=== PATIENT | male | born 1960 | race Hispanic/Latino ===

== ENCOUNTER 2017-12-04 06:00 | Day surgery (SDC) | payer OTHER ==
[2017-12-04] MEDS ORDERED: ECOTRIN PO NR (06:25)
[2017-12-04] MEDS ORDERED: NACL 0.9% 500 ML 500 ML IV SCH (07:00)
[2017-12-04 07:11] LABS: Basophils # (Auto) 0.1 K/mm3 (0.0-0.1); Eosinophils # (Auto) 0.2 K/mm3 (0.0-0.4); Hematocrit 41.4 % (35.5-45.6); Hemoglobin 14.2 gm/dl (11.8-15.2); Lymphocytes # (Auto) 1.9 K/mm3 (1.2-5.4); Lymphocytes % (Auto) 29.2 % (13.4-35.0); Mean Corpuscular HGB Conc 34 % (32-34); Mean Corpuscular Hemoglobin 30 pg (28-32); Mean Corpuscular Volume 86 fl (84-94); Monocytes # (Auto) 0.6 K/mm3 (0.0-0.8); Monocytes % (Auto) 9.3 % (0.0-7.3); Platelet Count 195 K/mm3 (140-440); Red Blood Count 4.82 M/mm3 (3.65-5.03); Red Cell Distribution Width 13.3 % (13.2-15.2)
[2017-12-04 07:25] LABS: INR 0.83 (0.87-1.13)
[2017-12-04 07:27] LABS: BUN/Creatinine Ratio 21; Blood Urea Nitrogen 15 mg/dL (9-20); Hemolysis Index 7
[2017-12-04] MEDS ORDERED: HEPARIN/NS 5000 UNIT/500ML(CATH LAB) 1,000 ML IR ONE (08:30)
[2017-12-04] MEDS ORDERED: VERSED ONE (08:31)
[2017-12-04] MEDS ORDERED: SUBLIMAZE ONE (08:31)
[2017-12-04] MEDS: CALAN ONE ×2 (08:42→08:48)
[2017-12-04] MEDS: XYLOCAINE 2% INFILTRATI ONE ×2 (08:42→08:46)
[2017-12-04] MEDS: HEPARIN 10,000 UNITS/10 ML ONE ×2 (08:42→08:48)
[2017-12-04] MEDS: NITROGLYCERIN SYRINGE 3 ML ONE ×2 (08:43→08:48)
[2017-12-04] MEDS ORDERED: NACL 0.9% 0 ML ONE (08:56)
[2017-12-04] MEDS ORDERED: ANGIOMAX IV ONE (08:56)
--- NOTE | 2017-12-04 09:33 | Short Stay Summary ---
Short Stay Documentation Date of service: 12/04/17 - History H&P: obtained from office - Allergies and Medications Current Medications: Allergies No Known Allergies Allergy (Unverified 12/04/17 06:01) Home Medications Medication Instructions Recorded Confirmed Last Taken Type Cinnamon Bark [Cinnamon] 500 mg PO BID 12/04/17 12/04/17 12/03/17 History Lisinopril [Zestril] 40 mg PO DAILY 12/04/17 12/04/17 12/04/17 History Simvastatin [Simvastatin] 20 mg PO DAILY 12/04/17 12/04/17 12/03/17 History Turmeric Root Extract [Turmeric] 500 mg PO BID 12/04/17 12/04/17 12/03/17 History metFORMIN [Glucophage] 500 mg PO BID 12/04/17 12/04/17 12/03/17 History Active Medications Aspirin (Ecotrin) 325 mg PO ONCE NR Stop: 12/04/17 10:00 Last Admin: 12/04/17 06:45 Dose: 325 mg Sodium Chloride (Nacl 0.9% 500 Ml) 500 mls @ 50 mls/hr IV DIRECT WILLIAM Stop: 12/04/17 16:59 Last Admin: 12/04/17 07:00 Dose: 50 mls/hr - Brief post op/procedure progress note Date of procedure: 12/04/17 Pre-op diagnosis: abnl stress and chest pain Post-op diagnosis: same Procedure: see report Anesthesia: local Estimated blood loss: none Pathology: none - Disposition Condition at discharge: Good Disposition: [id number] TO HOME OR SELFCARE - Discharge Diagnoses (1) CAD (coronary artery disease) Status: Acute Qualifiers: Coronary Disease-Associated Artery/Lesion type: [place] artery [place] vs. transplanted heart: [place] heart Associated angina: with stable angina Qualified Code(s): I25.118 - Atherosclerotic heart disease of [place] coronary artery with other forms of angina pectoris (2) Hypertension Status: Chronic Qualifiers: Hypertension type: essential hypertension Qualified Code(s): I10 - Essential (primary) hypertension (3) Hyperlipemia, mixed Status: Chronic (4) Diabetes mellitus Status: Chronic Qualifiers: Diabetes mellitus type: type 2 Diabetes mellitus complication status: with circulatory complication Diabetes mellitus complication detail: with other circulatory complications Diabetes mellitus nursing home insulin use: with intermediate school teacher use Qualified Code(s): E11.59 - Type 2 diabetes mellitus with other circulatory complications; Z79.4 - senior living (current) use of insulin; Z79.4 - tank terminal gauger (current) use of insulin; Z79.4 - tank terminal gauger (current) use of insulin; Z79.4 - tank terminal gauger (current) use of insulin (5) Cardiovascular stress test abnormal Status: Acute (6) Chest pain Status: Acute Qualifiers: Ischemic chest pain type: stable angina pectoris Short Stay Discharge Plan Activity: advance as tolerated Diet: low fat, low cholesterol, low salt, diabetic Wound: keep clean and dry Special Instructions: hold Metformin (for two days) Follow up with: GAURI PINTO MD [Primary Care Provider] - 7 Days Prescriptions: ISOSORBIDE MONOnitrate [Imdur ER] 30 mg PO QDAY #30 tablet Metoprolol [Lopressor TAB] 25 mg PO BID #60 tablet
[2017-12-04] MEDS: IMDUR PO SCH (09:55)
[2017-12-04] MEDS ORDERED: BABY ASPIRIN PO SCH (10:00)
[2017-12-04] MEDS ORDERED: LOPRESSOR PO SCH (10:00)
[2017-12-04 11:45] VITALS: BP 117/58
--- NOTE | 2017-12-04 16:25 | Cardiac Catherization Report ---
PROCEDURE : Left heart catheterization. REFERRING PHYSICIAN: Dr. Jesse Paredes. Seen in office. CLINICAL INFORMATION: This is a 57-year-old gentleman with hypertension, diabetes, cholesterol with obesity, who has been having intermediate chest pain without activity. The patient had a stress echo, which showed a moderate anterior wall hypokinesis with activity, was referred here for a left heart catheterization. Under my supervision, 1 mg of Versed and 50 mcg of fentanyl was given, 25 minutes of supervised moderate sedation was done. Starting time of 8:35 a.m. and ending time of 9 a.m. PROCEDURE DETAILS: Left heart catheterization performed via the right radial artery, sterile technique, local anesthesia, normal Esdras's test, a 6-Swedish radial sheath inserted. PROCEDURE FINDINGS: Left system engaged with JL3.5 catheter. Left main is large and patent, then bifurcates into a large LAD, proximal is patent and then bifurcates to a large dual LAD or diagonal 1, which has an ostial 80% lesion and then after that ostial diagonal or dual LAD, the true LAD has another 80% lesion and later, the LAD becomes 100%, initially left to left collaterals feeding into a small to medium caliber LAD. Circumflex is a medium caliber vessel, moderate tortuosity, is patent. OM-1 and OM-2 are [id number] caliber vessel, patent with moderate tortuosity. RCA engaged with JR4 catheter, calcified vessel, large, dominant, moderate tortuosity, proximal 40% lesion, mid to distal patent with mild luminal irregularities, bifurcates into a medium caliber PLV that is long, at the mid portion an 80% lesion of a 2.5 vessel and PDA is a [id number] caliber vessel that is patent with mild luminal irregularities. LV gram done in ARABIC and NEAL view shows normal LV function, LVEDP of 22 mmHg, LV was 180/22, aortic is170 mm hg . No significant gradient across the aortic valve on pullback. 5-Swedish catheters were taken over guidewire. The 6-Swedish radial sheath was discontinued. Radial dressing applied. No hematoma, no bleeding. SUMMARY: 1. Significant bifurcating disease of the ostia of diagonal 1 or dual LAD with a true LAD has mid 80% and again mid 100%. The patient's circumflex is patent. RCA proximal 40%, and PLV 80% lesion with normal LV function. 2. The patient will see [facility] surgery for robotic JENKINS to LAD with PCI of LAD to diagonal and PLV or 3-vessel bypass. PSYCHIATRIC# [id number] ELOY/KEYLA DUFFY
== END 2017-12-04 06:01 | disposition home or self-care (01) ==
LOC: CATHLABREC 06:00
PROVIDERS: ATTEND Internal Medicine
DX: I25.10 Atherosclerotic heart disease of native coronary artery without angina pectoris (principal); E11.9 Type 2 diabetes mellitus without complications; J45.909 Unspecified asthma, uncomplicated; I10 Essential (primary) hypertension; E78.5 Hyperlipidemia, unspecified; E66.9 Obesity, unspecified; Z68.27 Body mass index [BMI] 27.0-27.9, adult; Z79.84 Long term (current) use of oral hypoglycemic drugs; Z79.899 Other long term (current) drug therapy; Z82.49 Family history of ischemic heart disease and other diseases of the circulatory system; Z87.891 Personal history of nicotine dependence
CPT/HCPCS: 36415; 80048; 85025; 85610; 85730; 93005; 93010; 93458; 99156; 99157; C1894; J1644; J2250; J3010; J7040; J0583; Q9967